=== PATIENT | male | born 1940 | race Caucasian/White ===

== ENCOUNTER 2023-11-25 16:56 | Emergency (ER) | payer MEDICARE ==
[~2023-11-25] VITALS: Ht 172.7 cm; Wt 92.5 kg
[~2023-11-25 16:56] MED LIST: ARICEPT5 MG PO; CITALOPRAM HBR20 MG PO; CLOPIDOGREL75 MG PO; GABAPENTIN300 MG PO; LISINOPRIL10 MG PO; LORATADINE10 MG PO; LOVENOX60 MG/0.6 SC; NAMENDA10 MG PO; PANTOPRAZOLE SO40 MG PO; SIMVASTATIN40 MG PO; TERAZOSIN HCL1 MG PO; ULTRAM50 MG PO; WARFARIN SODIU2.5 MG PO
[2023-11-25 17:00] VITALS: TEMP 98.3
[2023-11-25 17:19] LABS: BASOPHILS # (AUTO) 0.1 (0.0-0.1); EOSINOPHILS # (AUTO) 0.2 (0.0-0.4); HEMATOCRIT 53.7 % (38.2-49.6); HEMOGLOBIN 17.7 g/dL (14.0-18.0); LYMPHOCYTES # (AUTO) 1.5 (1.0-3.2); LYMPHOCYTES % 24.6 % (18.0-39.1); MEAN CORPUSCULAR HEMOGLOBIN 31.3 pg (28-32); MONOCYTES # (AUTO) 0.6 (0.2-0.8); MONOCYTES % 9.2 % (4.4-11.3); NEUTROPHILS # (AUTO) 3.8 (2.1-6.9); NEUTROPHILS % 61.9 % (38.7-80.0); PLATELET COUNT 205 x10e3/uL (140-360); RED BLOOD COUNT 5.65 x10e6/uL (4.3-5.7); RED CELL DISTRIBUTION WIDTH 13.6 % (11.7-14.4); WHITE BLOOD COUNT 6.06 x10e3/uL (4.8-10.8)
[2023-11-25 17:26] LABS: INR 0.99; PROTHROMBIN TIME 13.6 seconds (11.9-14.5)
[2023-11-25 17:27] LABS: PARTIAL THROMBOPLASTIN TIME 36.1 seconds (23.8-35.5)
[2023-11-25 17:36] LABS: ALBUMIN 3.9 g/dL (3.5-5.0); ALBUMIN/GLOBULIN RATIO 1.1 (0.8-2.0); ANION GAP 17.7 mmol/L (8-16); BILIRUBIN,TOTAL 0.7 mg/dL (0.2-1.2); CALCIUM 10.9 mg/dL (8.4-10.2); CREATININE, SERUM 2.38 mg/dL (0.72-1.25); POTASSIUM 3.7 mmol/L (3.5-5.1); TOTAL PROTEIN 7.4 g/dL (6.5-8.1)
[2023-11-25 17:41] LABS: INFLUENZAE A&B ANTIGEN (RAPID) NEGATIVE (NEGATIVE); RESPIRATORY SYNC. VIRUS NEGATIVE (NEGATIVE)
[2023-11-25 17:42] LABS: TROPONIN I 0.015 ng/mL (0-0.300)
[2023-11-25] MEDS: ONDANSETRON HCL INJ 2MG/ML 2ML 2 MG/ML VIAL IV STA (17:48)
[2023-11-25] MEDS: SODIUM CHLORIDE 0.9% 1000ML 1,000 ML IV STA ×2 (17:49→20:22)
[2023-11-25] MEDS: SODIUM CHLORIDE 0.9% 1000ML 1,000 ML IV SCH (19:45)
[2023-11-25] MEDS ORDERED: MACROBID 100 M100 MG PO (20:42)
[2023-11-25 21:30] VITALS: PULSE 74; RESP 16
[2023-11-25 21:43] VITALS: BP 118/73; PULSE 74; RESP 17; O2SAT 93
== END 2023-11-25 21:40 | disposition home or self-care (01) ==
LOC: ER 17:05
DX: R10.11 Right upper quadrant pain (principal); R62.7 Adult failure to thrive; F03.90 Unspecified dementia, unspecified severity, without behavioral disturbance, psychotic disturbance, mood disturbance, and anxiety; I10 Essential (primary) hypertension; E78.5 Hyperlipidemia, unspecified; K21.9 Gastro-esophageal reflux disease without esophagitis; R94.31 Abnormal electrocardiogram [ECG] [EKG]; Z95.810 Presence of automatic (implantable) cardiac defibrillator; Z86.73 Personal history of transient ischemic attack (TIA), and cerebral infarction without residual deficits
CPT/HCPCS: 36415; 70450; 71045; 74176; 80053; 82550; 83735; 83880; 84484; 85025; 85610; 85730; 87400; 87420; 93005; 99284; J2405; J2470; J7030; U0002

== ENCOUNTER 2024-02-24 14:34 | Emergency (ER) | payer MEDICARE ==
[~2024-02-24] VITALS: Ht 172.7 cm; Wt 92.5 kg
[~2024-02-24 14:34] MED LIST changes: +MACROBID 100 M100 MG PO
[2024-02-24 15:05] VITALS: TEMP 98.1
[2024-02-24] MEDS ORDERED: OMEGA 3 1,0001 EACH PO (15:27)
[2024-02-24] MEDS ORDERED: CYMBALTA30 MG PO (15:27)
[2024-02-24] MEDS ORDERED: ELIQUIS2.5 MG PO (15:27)
[2024-02-24] MEDS ORDERED: OMEPRAZOLE40 MG PO (15:27)
[2024-02-24] MEDS ORDERED: VITAMIN D3125 MCG PO (15:27)
[2024-02-24] MEDS ORDERED: AMIODARONE HCL200 MG PO (15:27)
[2024-02-24] MEDS ORDERED: ATORVASTATIN CA20 MG PO (15:27)
[2024-02-24] MEDS ORDERED: FUROSEMIDE40 MG PO (15:27)
[2024-02-24] MEDS ORDERED: METOPROLOL TART25 MG PO (15:27)
[2024-02-24] MEDS ORDERED: GABAPENTIN600 MG PO (15:27)
[2024-02-24 17:29] VITALS: PULSE 79; RESP 16; O2SAT 93
== END 2024-02-24 17:31 | disposition home or self-care (01) ==
LOC: ER 14:59
DX: M79.605 Pain in left leg (principal); M79.604 Pain in right leg; I12.9 Hypertensive chronic kidney disease with stage 1 through stage 4 chronic kidney disease, or unspecified chronic kidney disease; N18.9 Chronic kidney disease, unspecified; E78.5 Hyperlipidemia, unspecified; F03.90 Unspecified dementia, unspecified severity, without behavioral disturbance, psychotic disturbance, mood disturbance, and anxiety; K21.9 Gastro-esophageal reflux disease without esophagitis; Z86.73 Personal history of transient ischemic attack (TIA), and cerebral infarction without residual deficits; Z95.810 Presence of automatic (implantable) cardiac defibrillator
CPT/HCPCS: 72170; 99282

== ENCOUNTER 2024-04-29 08:41 | Emergency (ER) | payer MEDICARE ==
[~2024-04-29] VITALS: Ht 172.7 cm; Wt 92.5 kg
[~2024-04-29 08:41] MED LIST changes: +AMIODARONE HCL200 MG PO; +ATORVASTATIN CA20 MG PO; +CYMBALTA30 MG PO; +ELIQUIS2.5 MG PO; +FUROSEMIDE40 MG PO; +GABAPENTIN600 MG PO; +METOPROLOL TART25 MG PO; +OMEGA 3 1,0001 EACH PO; +OMEPRAZOLE40 MG PO; +VITAMIN D3125 MCG PO
[2024-04-29 08:55] VITALS: PULSE 74; RESP 22; TEMP 98.2
[2024-04-29 09:32] LABS: BASOPHILS % 0.5 % (0.0-1.0); EOSINOPHILS # (AUTO) 0.1 (0.0-0.4); EOSINOPHILS % 0.9 % (0.0-6.0); HEMATOCRIT 46.8 % (38.2-49.6); HEMOGLOBIN 15.4 g/dL (14.0-18.0); LYMPHOCYTES % 12.2 % (18.0-39.1); MEAN CORPUSCULAR HEMOGLOBIN 30.6 pg (28-32); MEAN CORPUSCULAR HGB CONC 32.9 g/dL (31-35); MONOCYTES # (AUTO) 0.8 (0.2-0.8); MONOCYTES % 9.6 % (4.4-11.3); NEUTROPHILS % 76.2 % (38.7-80.0); PLATELET COUNT 159 x10e3/uL (140-360); RED BLOOD COUNT 5.03 x10e6/uL (4.3-5.7); RED CELL DISTRIBUTION WIDTH 14.5 % (11.7-14.4); WHITE BLOOD COUNT 7.85 x10e3/uL (4.8-10.8)
[2024-04-29] MEDS: SODIUM CHLORIDE 0.9% 500ML 500 ML IV ONE (09:57)
[2024-04-29 10:18] LABS: ALBUMIN 3.4 g/dL (3.5-5.0); ALBUMIN/GLOBULIN RATIO 1.1 (0.8-2.0); ANION GAP 12.5 mmol/L (8-16); BILIRUBIN,TOTAL 0.5 mg/dL (0.2-1.2); CALCIUM 9.6 mg/dL (8.4-10.2); CREATININE, SERUM 1.65 mg/dL (0.72-1.25); MAGNESIUM 1.9 MG/DL (1.3-2.1); POTASSIUM 4.5 mmol/L (3.5-5.1); TOTAL PROTEIN 6.5 g/dL (6.5-8.1)
[2024-04-29 10:19] LABS: INR 0.93
[2024-04-29 10:21] LABS: PARTIAL THROMBOPLASTIN TIME 29.2 seconds (23.8-35.5)
[2024-04-29 10:24] LABS: TROPONIN I 0.004 ng/mL (0-0.300)
[2024-04-29] MEDS ORDERED: IOPAMIDOL 370 MG/ML 100 ML INFUS..BTL INJ ONE (10:49)
[2024-04-29 13:30] VITALS: BP 119/65
[2024-04-29 13:45] VITALS: PULSE 72; RESP 16; O2SAT 97
[2024-04-29 14:10] VITALS: TEMP 98.5
== END 2024-04-29 14:12 | disposition home or self-care (01) ==
LOC: ER 09:17
DX: R07.89 Other chest pain (principal); S20.212A Contusion of left front wall of thorax, initial encounter; S80.212A Abrasion, left knee, initial encounter; S80.211A Abrasion, right knee, initial encounter; W18.39XA Other fall on same level, initial encounter; Y93.01 Activity, walking, marching and hiking; Y92.488 Other paved roadways as the place of occurrence of the external cause; F03.90 Unspecified dementia, unspecified severity, without behavioral disturbance, psychotic disturbance, mood disturbance, and anxiety; I12.9 Hypertensive chronic kidney disease with stage 1 through stage 4 chronic kidney disease, or unspecified chronic kidney disease; N18.9 Chronic kidney disease, unspecified; E78.5 Hyperlipidemia, unspecified; K21.9 Gastro-esophageal reflux disease without esophagitis; R94.31 Abnormal electrocardiogram [ECG] [EKG]; Z86.73 Personal history of transient ischemic attack (TIA), and cerebral infarction without residual deficits; Z95.810 Presence of automatic (implantable) cardiac defibrillator
CPT/HCPCS: 36415; 70450; 71260; 72125; 73562; 73590; 74177; 80053; 82550; 82948; 83735; 84484; 85025; 85610; 85730; 93005; 99284; J7040; Q9967